=== PATIENT | male | born 2000 ===

== ENCOUNTER → 2022-12-27 | Outpatient (RCR) | payer OTHER | END | disposition home or self-care (01) | PROVIDERS: ATTEND Family Medicine Sports Medicine | DX: M76.899 Other specified enthesopathies of unspecified lower limb, excluding foot (principal) ==

== ENCOUNTER 2023-01-23 09:03 | Outpatient (RCR) | payer OTHER | END 2023-01-27 | disposition home or self-care (01) | PROVIDERS: ATTEND Family Medicine Sports Medicine | DX: M76.899 Other specified enthesopathies of unspecified lower limb, excluding foot (principal); M25.559 Pain in unspecified hip ==

== ENCOUNTER 2023-02-13 09:18 | Outpatient (RCR) | payer OTHER | END 2023-02-26 | disposition home or self-care (01) | PROVIDERS: ATTEND Family Medicine Sports Medicine | DX: M76.899 Other specified enthesopathies of unspecified lower limb, excluding foot (principal) ==

== ENCOUNTER 2023-03-10 14:35 | Outpatient (RCR) | payer OTHER | END 2023-03-29 | disposition home or self-care (01) | PROVIDERS: ATTEND Family Medicine Sports Medicine | DX: M76.899 Other specified enthesopathies of unspecified lower limb, excluding foot (principal) ==